=== PATIENT | female | born 1930 | race Caucasian/White ===

== ENCOUNTER → 2016-10-17 | Outpatient (CLI) | payer OTHER ==
[~2016-10-17] MED LIST: ASMACORT; CETITAB27 PO; DOXY100C2 PO; ERGO500037 PO; FLVHFA110 INH; FSMD/70 PO; LORA10TA57 PO; LRT5 PO; MONT1TAB5 PO; NASOCORT; PRED50TA PO; ZFRODT4 SL
== END | disposition home or self-care (01) ==
LOC: C.PATHSPEC 17:56
PROVIDERS: ATTEND Plastic Surgery
DX: L98.9 Disorder of the skin and subcutaneous tissue, unspecified (principal)

== ENCOUNTER → 2017-02-10 | Outpatient (CLI) | payer OTHER ==
[~2017-02-10] MED LIST changes: +LORA-749 PO; -LORA10TA57 PO
[2017-02-10 17:30] LABS: HEMATOCRIT 43.4 % (37-47); MEAN CELL VOLUME 96.2 fL (80-100); MEAN CORPUSCULAR HEMOGLOBIN 31.7 pg (25-34); MEAN CORPUSCULAR HGB CONC 32.9 g/dl (32-36); MEAN PLATELET VOLUME 9.9 fL (7.4-10.4); PLATELET COUNT 208 K/uL (130-400); RED BLOOD COUNT 4.51 M/uL (4.2-5.4); WHITE BLOOD COUNT 5.44 K/uL (4.8-10.8)
[2017-02-10 17:56] LABS: URINE APPEARANCE CLEAR (CLEAR); URINE BILIRUBIN NEG (NEG); URINE COLOR YELLOW; URINE NITRITE NEG (NEG); URINE PH 5.5 (4.5-7.5); URINE SPECIFIC GRAVITY 1.021 (1.000-1.030); UROBILINOGEN NEG (NEG)
[2017-02-10 17:58] LABS: URINE PROTIEN/CREAT RATIO 0.3 (0-0.2); URINE TOTAL PROTEIN 33.2 mg/dl (0-11.9)
[2017-02-10 17:59] LABS: MANUAL MICROSCOPIC REQUIRED? NO; REVIEW REQ? NO
[2017-02-10 18:05] LABS: ALB/GLOB RATIO 1.1 (0.9-2); ALT/SGPT 21 U/L (12-78); AST/SGOT 18 U/L (15-37); BLOOD UREA NITROGEN 30 mg/dl (7-18); BUN/CREATININE RATIO 35.2 (10-20); CALCIUM 9.4 mg/dl (8.5-10.1); CARBON DIOXIDE 32 mmol/L (21-32); CHLORIDE 105 mmol/L (98-107); CREATININE 0.84 mg/dl (0.60-1.20); GLUCOSE 82 mg/dl (70-99); POTASSIUM 4.3 mmol/L (3.5-5.1); SODIUM 141 mmol/L (136-145)
[2017-02-10 18:06] LABS: ALKALINE PHOSPHATASE 54 U/L (45-117)
== END | disposition home or self-care (01) ==
LOC: C.LAB1850 17:04
PROVIDERS: ATTEND Internal Medicine Nephrology
DX: N18.2 Chronic kidney disease, stage 2 (mild) (principal); E55.9 Vitamin D deficiency, unspecified; N25.81 Secondary hyperparathyroidism of renal origin

== ENCOUNTER → 2017-02-24 | Outpatient (CLI) | payer OTHER ==
--- NOTE | 2017-02-25 07:55 | MAMMOGRAPHY REPORT ---
BILATERAL DIGITAL SCREENING MAMMOGRAM WITH CAD: 02/24/2017 CLINICAL HISTORY: Routine screening. Patient has no complaints. TECHNIQUE: Bilateral CC, MLO and left XCCL views were obtained. Current study was also evaluated w ith a Computer Aided Detection (CAD) system. COMPARISON: Comparison is made to exams dated: 02/22/2016 mammogram, 06/24/2013 mammogram, 09/12/2010 mammogram - [facility], 07/12/2009, and 08/06/2007. BREAST COMPOSITION: The tissue of both breasts is heterogeneously dense, which may obscure small ma sses. FINDINGS: There is a 5 mm focal asymmetry in the 6:00 right breast, that could represent normal ove rlapping tissue. However, additional spot compression tomosynthesis views and possibly ultrasound a re recommended. There are stable grouped punctate microcalcifications in the upper outer middle one third of the lef t breast, similar in appearance dating back to at least 08/06/2007, therefore likely benign. No oth er suspicious mass, architectural distortion or cluster of microcalcifications is seen. IMPRESSION: ACR BI-RADS CATEGORY 0: INCOMPLETE EVALUATION: NEED ADDITIONAL IMAGING EVALUATION The 5 mm focal asymmetry in the 6:00 right breast needs additional evaluation. The patient will be called to schedule an appointment. Approximately 10% of breast cancers are not detected with mammography. A negative mammographic repor t should not delay biopsy if a clinically suggestive mass is present. Tracie Graves M.D. ay/:02/24/2017 20:57:32 Chief Design Branch: Megan MACEDO(Av)(Sudha)(BD), [facility] letter sent: Addl Imaging 0 BI-RADS Code: ACR BI-RADS Category 0: Incomplete Evaluation: Need Additional Imaging Evaluation
== END | disposition home or self-care (01) ==
LOC: C.MAMM 14:10
PROVIDERS: ATTEND Family Medicine
DX: Z12.31 Encounter for screening mammogram for malignant neoplasm of breast (principal); N64.89 Other specified disorders of breast

== ENCOUNTER 2017-03-03 22:01 | Emergency (ER) | payer OTHER ==
[~2017-03-03] VITALS: Ht 162.6 cm; Wt 53.6 kg
[~2017-03-03 22:01] MED LIST changes: -DOXY100C2 PO; -ERGO500037 PO; -FLVHFA110 INH; -FSMD/70 PO; -LORA-749 PO; -MONT1TAB5 PO; -PRED50TA PO
[2017-03-03 22:03] VITALS: TEMP 36.7; Ht 162.6 cm; Wt 53.6 kg
[2017-03-03] MEDS ORDERED: ALBUT/IPRATROP 3MG/0.5MG NEB 3 ML VIAL INH STA (22:34)
[2017-03-03] MEDS ORDERED: SODIUM CHLORIDE 0.9% 1000ML 1,000 ML IV STA (22:34)
[2017-03-03] MEDS ORDERED: ONDANSETRON INJ 2 MG/ML 2 ML VIAL IV STA (22:34)
[2017-03-03] MEDS ORDERED: RANITIDINE HCL 50 MG/100 ML D5W IV STA (22:34)
[2017-03-03] MEDS ORDERED: SODIUM CHLORIDE 0.9% 500ML 500 ML IV STA (22:34)
[2017-03-03] MEDS ORDERED: DEXAMETHASONE SOD INJ 10 MG/ML VIAL IV ONE (22:45)
[2017-03-03] MEDS ORDERED: FSMD/70 PO (22:50)
[2017-03-03] MEDS ORDERED: MONT1TAB5 PO (22:50)
[2017-03-03] MEDS ORDERED: ERGO500037 PO (22:52)
[2017-03-03] MEDS ORDERED: FLVHFA110 INH (22:53)
[2017-03-03] MEDS ORDERED: LORA-749 PO (22:54)
[2017-03-03 23:06] LABS: BASO % 0.4 %; BASO ABS # 0.03 K/uL (0-0.2); COMPLETE YES; EOS % 0.8 %; HEMATOCRIT 40.9 % (37-47); IG% 0.8 %; LYMPH % 10.7 %; LYMPH ABS # 0.83 K/uL (1.2-3.4); MEAN CORPUSCULAR HEMOGLOBIN 31.8 pg (25-34); MEAN CORPUSCULAR HGB CONC 34.2 g/dl (32-36); MEAN PLATELET VOLUME 9.1 fL (7.4-10.4); MONO % 13.5 %; NEUT % 73.8 %; PLATELET COUNT 219 K/uL (130-400); WHITE BLOOD COUNT 7.75 K/uL (4.8-10.8)
[2017-03-03 23:09] VITALS: O2SAT 94
[2017-03-03 23:32] LABS: BLOOD UREA NITROGEN 11 mg/dl (7-18); BUN/CREATININE RATIO 13.3 (10-20); CALCIUM 8.6 mg/dl (8.5-10.1); CARBON DIOXIDE 29 mmol/L (21-32); CHLORIDE 99 mmol/L (98-107); CREATININE 0.85 mg/dl (0.60-1.20); GLUCOSE 115 mg/dl (70-99); POTASSIUM 3.9 mmol/L (3.5-5.1); SODIUM 137 mmol/L (136-145)
[2017-03-04] MEDS ORDERED: DOXYCYCLINE HYCLATE 100 MG CAP PO ONE (00:15)
--- NOTE | 2017-03-04 00:17 | EMERGENCY ROOM VISIT NOTE ---
ED Visit Note First contact with patient: 22:14 Patient seen by me as well. I agree with the physician assistants workup with the patient. On examination the patient at 0015 the patient states she is much improved. Patient has a negative troponin will repeat to rule out acute coronary syndrome which do not suspect this time. I suspect this more a bronchitis type picture. The evaluation was discussed with the patient patient' s family at bedside Current/Historical Medications Scheduled Alendronate/Cholecalciferol (Fosamax+D 70MG/2800 Iu), 70 MG PO WK Ergocalciferol (Vitamin D 59179 Unit), 50,000 UNIT PO MONTHLY Montelukast Sodium (Montelukast Sodium), 10 MG PO DAILY Scheduled PRN Fluticasone Propionate (Flovent Hfa), 2 PUFFS INH BID PRN for SOB/Wheezing Loratadine & Pseudoephedrine (Claritin-D 24 Hour), 1 TAB PO DAILY PRN for ALLERGIC REACTION Allergies Coded Allergies: Penicillins (Unverified Allergy, Mild, 02/01/14) Vital Signs Date Time Temp Pulse Resp B/P Pulse Ox O2 Delivery O2 Flow Rate FiO2 03/03/17 23:09 94 Room Air 03/03/17 22:23 92 Room Air 03/03/17 22:03 36.7 101 21 130/85 93 Room Air Laboratory Results 03/03/17 22:55 Red Blood Count 4.40, Mean Corpuscular Volume 93.0, Mean Corpuscular Hemoglobin 31.8, Mean Corpuscular Hemoglobin Concent 34.2, Mean Platelet Volume 9.1, Neutrophils (%) (Auto) 73.8, Lymphocytes (%) (Auto) 10.7, Monocytes (%) (Auto) 13.5, Eosinophils (%) (Auto) 0.8, Basophils (%) (Auto) 0.4, Neutrophils # (Auto ) 5.72, Lymphocytes # (Auto) 0.83, Monocytes # (Auto) 1.05, Eosinophils # (Auto ) 0.06, Basophils # (Auto) 0.03 03/03/17 22:55 Test 03/03/17 22:55 03/03/17 23:03 White Blood Count 7.75 K/uL (4.8-10.8) Red Blood Count 4.40 M/uL (4.2-5.4) Hemoglobin 14.0 g/dL (12.0-16.0) Hematocrit 40.9 % (37-47) Mean Corpuscular Volume 93.0 fL (80-100) Mean Corpuscular Hemoglobin 31.8 pg (25-34) Mean Corpuscular Hemoglobin Concent 34.2 g/dl (32-36) Platelet Count 219 K/uL (130-400) Mean Platelet Volume 9.1 fL (7.4-10.4) Neutrophils (%) (Auto) 73.8 % Lymphocytes (%) (Auto) 10.7 % Monocytes (%) (Auto) 13.5 % Eosinophils (%) (Auto) 0.8 % Basophils (%) (Auto) 0.4 % Neutrophils # (Auto) 5.72 K/uL (1.4-6.5) Lymphocytes # (Auto) 0.83 K/uL (1.2-3.4) Monocytes # (Auto) 1.05 K/uL (0.11-0.59) Eosinophils # (Auto) 0.06 K/uL (0-0.5) Basophils # (Auto) 0.03 K/uL (0-0.2) RDW Standard Deviation 41.1 fL (36.4-46.3) RDW Coefficient of Variation 12.1 % (11.5-14.5) Immature Granulocyte % (Auto) 0.8 % Immature Granulocyte # (Auto) 0.06 K/uL (0.00-0.02) Anion Gap 9.0 mmol/L (3-11) Est Creatinine Clear Calc Drug Dose 40.9 ml/min Estimated GFR () 72.4 Estimated GFR (Non- 62.5 BUN/Creatinine Ratio 13.3 (10-20) Calcium Level 8.6 mg/dl (8.5-10.1) Troponin I < 0.015 ng/ml (0-0.045) Bedside Lactic Acid Venous 0.80 mmol/L (0.90-1.70) Medications Administered Medications (Trade) Dose Ordered Sig/Whit Route Start Time Stop Time Status Last Admin Dose Admin Dexamethasone Sodium Phosphate (Decadron Inj) 10 mg NOW ONCE IV 03/03/17 22:45 03/03/17 22:46 DC 03/03/17 23:01 10 MG Albuterol/ Ipratropium 3 ml 3 ml NOW STAT INH 03/03/17 22:34 03/03/17 22:36 DC 03/03/17 22:58 3 ML Sodium Chloride 500 ml @ 999 mls/hr Q31M STAT IV 03/03/17 22:34 03/03/17 23:04 DC 03/03/17 22:34 999 MLS/HR Sodium Chloride (Nss 1000ml) 1,000 ml @ 125 mls/hr Q8H STAT IV 03/03/17 22:34 03/04/17 06:33 03/03/17 23:02 125 MLS/HR Ondansetron HCl (Zofran Inj) 4 mg NOW STAT IV 03/03/17 22:34 03/03/17 22:37 DC 03/03/17 23:01 4 MG Ranitidine HCl (zANTac IV) 50 mg NOW STAT IV 03/03/17 22:34 03/03/17 22:37 DC 03/03/17 23:01 50 MG Doxycycline Hyclate (Vibramycin Cap) 100 mg ONE ONCE PO 03/04/17 00:15 03/04/17 00:16 03/04/17 00:14 100 MG Departure Information Referrals Kelby Avendnao M.D. (PCP) Patient Instructions [facility]
[2017-03-04] MEDS ORDERED: PRED50TA PO (01:11)
[2017-03-04] MEDS ORDERED: DOXY100C2 PO (01:11)
[2017-03-04 01:23] VITALS: BP 132/82; PULSE 82; O2SAT 95
--- NOTE | 2017-03-04 04:21 | EMERGENCY ROOM VISIT NOTE ---
History First contact with patient: 22:14 Chief Complaint: THROAT PAIN/INJURY Stated Complaint: SORE THROAT,NAUSEA,FEVER,COATED TONGUE,PEELING LIP History of Present Illness The patient is a 87 year old female who presents to the Emergency Room with complaints of cough, congestion, throat discomfort, subjective fever and chills for the past week. Patient went to urgent care couple days ago and did a strep test was negative. Patient also complains of nausea. Patient denies chest pain , dyspnea, abdominal pain, leg pain or swelling, headache, neck stiffness. Patient complains of decreased appetite and fluid intake. Patient tried her inhaler with some improvement of symptoms. Review of Systems See HPI for pertinent positives & negatives. A total of 10 systems reviewed and were otherwise negative. Past Medical/Surgical History Asthma, osteoporosis, hysterectomy, tonsillectomy, hernia repair Social History Smoking Status: Never Smoker Smokeless Tobacco Use: No Alcohol Use: occasionally Drug Use: none Marital Status: Housing Status: lives with family Occupation Status: retired Current/Historical Medications Scheduled Alendronate/Cholecalciferol (Fosamax+D 70MG/2800 Iu), 70 MG PO WK Doxycycline Hyclate (Vibramycin), 100 MG PO BID Ergocalciferol (Vitamin D 57221 Unit), 50,000 UNIT PO MONTHLY Montelukast Sodium (Montelukast Sodium), 10 MG PO DAILY Prednisone (Prednisone), 50 MG PO DAILY Scheduled PRN Fluticasone Propionate (Flovent Hfa), 2 PUFFS INH BID PRN for SOB/Wheezing Loratadine & Pseudoephedrine (Claritin-D 24 Hour), 1 TAB PO DAILY PRN for ALLERGIC REACTION Allergies Coded Allergies: Penicillins (Unverified Allergy, Mild, 02/01/14) Physical Exam Vital Signs Date Time Temp Pulse Resp B/P Pulse Ox O2 Delivery O2 Flow Rate FiO2 03/04/17 01:23 82 18 132/82 95 Room Air 03/04/17 00:00 87 18 125/84 94 Room Air 03/03/17 23:09 94 Room Air 03/03/17 22:23 92 Room Air 03/03/17 22:03 36.7 101 21 130/85 93 Room Air Pain Rating (0-10): 0 Physical Exam VITALS: Vitals are noted on the nurse's note and reviewed by myself. Vital signs stable. GENERAL: Pleasant female, in no acute distress, nondiaphoretic, well-developed well-nourished. SKIN: The skin was without rashes, erythema, edema, or bruising. There is no tenting of the skin. Capillary reflex less than 2 seconds. HEAD: Normocephalic atraumatic. EARS: External auditory canals clear, tympanic membranes pearly sanchez without erythema or effusion bilaterally. EYES: Pupils equal round and reactive to light and accommodation. Conjunctivae without injection, sclerae without icterus. Extraocular movements intact. NOSE: Patent, turbinates without inflammation or discharge. No sinus tenderness. MOUTH: Mucous membranes mildly dry. Pharynx without erythema or exudate. Uvula midline. Airway patent. Tongue does not deviate. NECK: Supple without nuchal rigidity. No lymphadenopathy. No thyromegaly. Cervical spine is nontender. No JVD. HEART: Regular rate and rhythm LUNGS: Mild diffuse end expiratory wheezes, without rales or rhonchi. No dullness to percussion. No retractions or accessory muscle use. ABDOMEN: Positive bowel sounds x 4. Normal tympanic percussion. Soft, nontender, without masses or organomegaly. Rodriguez sign negative. No guarding or rebound tenderness. MUSCULOSKELETAL: No muscle atrophy, erythema, or edema noted. NEURO: Patient was alert and oriented to person place and time. Normal sensation to light and sharp touch. No focal neurological deficits. Medical Decision & Procedures Laboratory Results 03/03/17 22:55 Red Blood Count 4.40, Mean Corpuscular Volume 93.0, Mean Corpuscular Hemoglobin 31.8, Mean Corpuscular Hemoglobin Concent 34.2, Mean Platelet Volume 9.1, Neutrophils (%) (Auto) 73.8, Lymphocytes (%) (Auto) 10.7, Monocytes (%) (Auto) 13.5, Eosinophils (%) (Auto) 0.8, Basophils (%) (Auto) 0.4, Neutrophils # (Auto ) 5.72, Lymphocytes # (Auto) 0.83, Monocytes # (Auto) 1.05, Eosinophils # (Auto ) 0.06, Basophils # (Auto) 0.03 03/03/17 22:55 Test 03/03/17 22:55 03/03/17 23:03 03/04/17 00:54 White Blood Count 7.75 K/uL (4.8-10.8) Red Blood Count 4.40 M/uL (4.2-5.4) Hemoglobin 14.0 g/dL (12.0-16.0) Hematocrit 40.9 % (37-47) Mean Corpuscular Volume 93.0 fL (80-100) Mean Corpuscular Hemoglobin 31.8 pg (25-34) Mean Corpuscular Hemoglobin Concent 34.2 g/dl (32-36) Platelet Count 219 K/uL (130-400) Mean Platelet Volume 9.1 fL (7.4-10.4) Neutrophils (%) (Auto) 73.8 % Lymphocytes (%) (Auto) 10.7 % Monocytes (%) (Auto) 13.5 % Eosinophils (%) (Auto) 0.8 % Basophils (%) (Auto) 0.4 % Neutrophils # (Auto) 5.72 K/uL (1.4-6.5) Lymphocytes # (Auto) 0.83 K/uL (1.2-3.4) Monocytes # (Auto) 1.05 K/uL (0.11-0.59) Eosinophils # (Auto) 0.06 K/uL (0-0.5) Basophils # (Auto) 0.03 K/uL (0-0.2) RDW Standard Deviation 41.1 fL (36.4-46.3) RDW Coefficient of Variation 12.1 % (11.5-14.5) Immature Granulocyte % (Auto) 0.8 % Immature Granulocyte # (Auto) 0.06 K/uL (0.00-0.02) Anion Gap 9.0 mmol/L (3-11) Est Creatinine Clear Calc Drug Dose 40.9 ml/min Estimated GFR () 72.4 Estimated GFR (Non- 62.5 BUN/Creatinine Ratio 13.3 (10-20) Calcium Level 8.6 mg/dl (8.5-10.1) Troponin I < 0.015 ng/ml (0-0.045) Bedside Lactic Acid Venous 0.80 mmol/L (0.90-1.70) Bedside Troponin I 0.000 ng/ml (0-0.045) Medications Administered Medications (Trade) Dose Ordered Sig/Whit Route Start Time Stop Time Status Last Admin Dose Admin Dexamethasone Sodium Phosphate (Decadron Inj) 10 mg NOW ONCE IV 03/03/17 22:45 03/03/17 22:46 DC 03/03/17 23:01 10 MG Albuterol/ Ipratropium 3 ml 3 ml NOW STAT INH 03/03/17 22:34 03/03/17 22:36 DC 03/03/17 22:58 3 ML Sodium Chloride 500 ml @ 999 mls/hr Q31M STAT IV 03/03/17 22:34 03/03/17 23:04 DC 03/03/17 22:34 999 MLS/HR Sodium Chloride (Nss 1000ml) 1,000 ml @ 125 mls/hr Q8H STAT IV 03/03/17 22:34 03/04/17 02:15 DC 03/03/17 23:02 125 MLS/HR Ondansetron HCl (Zofran Inj) 4 mg NOW STAT IV 03/03/17 22:34 03/03/17 22:37 DC 03/03/17 23:01 4 MG Ranitidine HCl (zANTac IV) 50 mg NOW STAT IV 03/03/17 22:34 03/03/17 22:37 DC 03/03/17 23:01 50 MG Doxycycline Hyclate (Vibramycin Cap) 100 mg ONE ONCE PO 03/04/17 00:15 03/04/17 00:16 DC 03/04/17 00:14 100 MG ED Course Prior records/ancillary studies reviewed. Triage Nursing notes reviewed. Additional history obtained from family The patient's history was concerning for cold symptoms Differential diagnosis: Etiologies such as viral syndrome, otitis, pharyngitis, pneumonia, influenza, meningitis, urinary tract infection, sepsis, bacteremia, as well as others were entertained. Physical examination: Patient is alert, interactive and well-appearing ER treatment provided: No evidence, steroids, IV fluids On reassessment the patient felt better. Diagnostics interpreted by me: ECG: Normal sinus, normal intervals, right bundle branch block, left anterior fascicular block, Rate of 79. Impression right bundle branch block with a left anterior fascicular block interpreted by myself. Repeat EKG is unchanged. The labs revealed 2 troponins that are 2 hours apart that are negative. No leukocytosis Negative lactic acid Imaging studies: Chest x-ray with no acute consolidation, pneumothorax or free air per my interpretation This appears to be consistent with bronchitis. Patient had an abnormal EKG so repeat enzymes were ordered. She did have nausea. This could be an anginal equivalent. This is negative. Patient felt much better after being medicated as above. She was started on antibiotics for bronchitis for possible Atypical pathogens. Patient is an asthmatic. She has been sick for over a week. Negative lactic acid. No white count. She is advised to follow-up family care in a few days or here in the ER sooner for high fevers, lethargy, chest pain, worsening signs or symptoms or as needed.. By the evaluation outlined above emergent etiologies such as otitis, pharyngitis, pneumonia, meningitis, urinary tract infection, sepsis, bacteremia, as well as others were deemed relatively unlikely. The pt informed about the findings as listed above. All questions were answered and pleased with the treatment. Return instructions were outlined and the patient was discharged in stable condition. Outpatient prescription management: Doxycycline, prednisone. Patient has inhaler at home she has asthma Referral: The patient was referred back to their primary care physician for follow-up in 2 to 3 days for a recheck of the current condition. Case reviewed with my attending. Medical Decision As above Impression Primary Impression: Bronchitis Additional Impressions: Nausea Mild asthma with acute exacerbation Departure Information Dispostion Home / Self-Care Condition GOOD Prescriptions Prednisone (Prednisone) 50 Mg Tab 50 MG PO DAILY for 4 Days, #4 TAB Prov: Lexi Pina .TEGAN 03/04/17 Doxycycline Hyclate (VIBRAMYCIN) 100 Mg Cap 100 MG PO BID for 7 Days, #14 CAP Prov: Lexi Pina .TEGAN 03/04/17 Forms WORK / SCHOOL INSTRUCTIONS, HOME CARE DOCUMENTATION FORM, IMPORTANT VISIT INFORMATION Patient Instructions Bronchitis Acute, My [facility] Additional Instructions Prednisone 50 m tablet daily for the next 4 days. Takes in the morning. Doxycycline 100mg: Take one pill twice daily for seven days for your infection. Take with food, but avoid dairy. Avoid prolonged sun exposure since this medication makes you temporarily more susceptible to sunburns. All antibiotics can cause diarrhea. If this occurs and you feel worse or it does not resolve in 1-2 days follow up with your doctor or return to the Emergency Department as this could be signs of serious underlying problems. Any medication can cause an allergic reaction, stop the pills immediately and return to the ER for rash, hives, breathing difficulties, or swelling. Albuterol Inhaler: Take 2 puffs four times daily for seven days, then as needed. Acetaminophen(Tylenol) may be used for fever or pain. Use 1000mg every six hours as needed. Avoid using more than 3000mg in a 24 hour period. AND/OR Ibuprofen(Motrin, Advil) may be used for fever or pain. Use 600mg every six hours as needed. Take with food. Avoid using more than 2400mg in a 24 hour period. Do not use 2400mg per day for more than three consecutive days without physician direction. Prolonged inappropriate use can lead to stomach upset or ulcers. Controlling your fever with Tylenol and Ibuprofen as above will make you feel better. Rest and drink plenty of fluids. Avoid strenuous activity until your symptoms resolve and your breathing returns to normal. Continue current medications. Return to the ER for chest pain, difficulty breathing, persistent fevers, vomiting, worsening of your condition, or as needed. Follow-up with family care in 2-3 days. Problem Qualifiers
--- NOTE | 2017-03-04 07:18 | DIAGNOSTIC IMAGING REPORT ---
CHEST 2 VIEWS ROUTINE HISTORY: cough COMPARISON: Chest 07/03/2007. FINDINGS: The heart is normal in size. Mild emphysema. No pneumothorax. Linear densities within the right lung base. Blunting of the posterior costophrenic sulci. Patchy airspace opacities within the right upper lobe. IMPRESSION: 1. Patchy airspace opacities within the right upper lobe. This likely represents a pneumonia. Recommend one to 2 month chest x-ray follow-up to ensure resolution. 2. Emphysema. 3. Blunting of the posterior costophrenic sulci. This could be due to trace pleural effusions or the hyperexpanded lungs. Electronically signed by: Dayton Hall M.D. 03/04/2017 7:17 AM Dictated Date/Time: 03/04/2017 7:15 AM
== END 2017-03-04 01:28 | disposition home or self-care (01) ==
LOC: C.EDB 22:02 → C.EDC 03-04 01:28
DX: J45.901 Unspecified asthma with (acute) exacerbation (principal); J40 Bronchitis, not specified as acute or chronic; R11.0 Nausea; M81.0 Age-related osteoporosis without current pathological fracture; Z79.899 Other long term (current) drug therapy; Z88.0 Allergy status to penicillin; Z90.710 Acquired absence of both cervix and uterus; Z98.890 Other specified postprocedural states

== ENCOUNTER → 2017-03-05 | Outpatient (CLI) | payer OTHER ==
[~2017-03-05] MED LIST changes: -ASMACORT; -CETITAB27 PO; +DOXY100C2 PO; +ERGO500037 PO; +FLVHFA110 INH; +FSMD/70 PO; +LORA-749 PO; -LRT5 PO; +MONT1TAB5 PO; -NASOCORT; +PRED50TA PO; -ZFRODT4 SL
--- NOTE | 2017-03-05 14:11 | MAMMOGRAPHY REPORT ---
UNILATERAL RIGHT DIGITAL DIAGNOSTIC MAMMOGRAM TOMOSYNTHESIS AND TARGETED RIGHT ULTRASOUND: 03/05/2017 CLINICAL HISTORY: Callback from screening mammogram for right breast asymmetry. The patient reports that her daughter was diagnosed with breast cancer at age 49. TECHNIQUE: Breast tomosynthesis in addition to standard 2D mammography was performed. Spot floyd bindu right CC and MLO 2-D and tomosynthesis images were obtained. COMPARISON: Comparison is made to exams dated: 02/24/2017 mammogram, 02/22/2016 mammogram, 06/24/2013 mammogram, 09/12/2010 mammogram - [facility], 07/12/2009, and 08/06/2007. BREAST COMPOSITION: The tissue of the right breast is heterogeneously dense, which may obscure smal l masses. FINDINGS: The previously described nodular asymmetry within the right 6:00 breast effaces to a base line appearance on the additional spot compression views, and has the appearance of normal fibroglan dular tissue on the additional tomosynthesis images. No suspicious mass or architectural distortion is noted in this region on the additional tomosynthesis images. Targeted ultrasound was performed of the right 6:00 breast in the region of the mammographic asymmet ry. No suspicious masses or other suspicious sonographic abnormalities are evident. IMPRESSION: ACR BI-RADS CATEGORY 2: BENIGN, TARGETED ULTRASOUND ACR BI-RADS CATEGORY 2: BENIGN The right breast focal asymmetry effaces on the additional views, without corresponding sonographic abnormality evident. The asymmetry is benign and compatible with normal fibroglandular tissue. The re is no mammographic or targeted sonographic evidence of malignancy. A 1 year screening mammogram i s recommended. The patient has been verbally notified of the results. Approximately 10% of breast cancers are not detected with mammography. A negative mammographic repor t should not delay biopsy if a clinically suggestive mass is present. Jennifer Hope M.D. ah/:03/05/2017 11:10:13 [employer] Driver: Maureen MACEDO(Av)(M), [facility] letter sent: Normal 1/2 BI-RADS Code: ACR BI-RADS Category 2: Benign Ultrasound BI-RADS: ACR BI-RADS Category 2: Benign
== END | disposition home or self-care (01) ==
LOC: C.MAMM 10:37
PROVIDERS: ATTEND Family Medicine
DX: R92.8 Other abnormal and inconclusive findings on diagnostic imaging of breast (principal)

== ENCOUNTER → 2017-04-14 | Outpatient (CLI) | payer OTHER ==
[~2017-04-14] MED LIST changes: -LORA-749 PO; +LORA10TA57 PO; -PRED50TA PO
--- NOTE | 2017-04-14 15:00 | DIAGNOSTIC IMAGING REPORT ---
CHEST 2 VIEWS ROUTINE HISTORY:85 [id number] COMPARISON: 03/03/2017. TECHNIQUE: Frontal and lateral views of the chest. FINDINGS: Cardiac silhouette is within normal limits. There is atherosclerosis of the aorta. Mild biapical pleural parenchymal scarring is seen. No pneumothorax or large pleural effusion. There is resolution of the previously described alveolar opacities of the right midlung. No new focal airspace consolidation or overt pulmonary edema. Lungs are mildly hyperinflated. Persistent blunting of the posterior costophrenic angles is thought to be secondary to hyperinflation and scarring. Degenerative changes are seen within the lumbar spine. There is convex right curvature of the lumbar spine. IMPRESSION: 1. Resolution of the previously described alveolar opacities of the right midlung. 2. Background emphysema. The above report was generated using voice recognition software. It may contain grammatical, syntax or spelling errors. Electronically signed by: Gasper Powell 04/14/2017 2:58 PM Dictated Date/Time: 04/14/2017 2:57 PM
== END | disposition home or self-care (01) ==
LOC: C.RAD 14:20
PROVIDERS: ATTEND Physician Assistant
DX: R93.8 Abnormal findings on diagnostic imaging of other specified body structures (principal); J43.9 Emphysema, unspecified

== ENCOUNTER → 2018-01-26 | Outpatient (CLI) | payer OTHER ==
[~2018-01-26] MED LIST changes: +LORA-749 PO; -LORA10TA57 PO
== END | disposition home or self-care (01) ==
LOC: C.MAMM 11:07
PROVIDERS: ATTEND Family Medicine
DX: M81.0 Age-related osteoporosis without current pathological fracture (principal); M85.852 Other specified disorders of bone density and structure, left thigh

== ENCOUNTER → 2018-02-16 | Outpatient (CLI) | payer OTHER ==
[2018-02-16 16:44] LABS: HEMATOCRIT 41.2 % (37-47); HEMOGLOBIN 13.5 g/dL (12.0-16.0); MEAN CELL VOLUME 96.3 fL (80-100); MEAN CORPUSCULAR HEMOGLOBIN 31.5 pg (25-34); MEAN CORPUSCULAR HGB CONC 32.8 g/dl (32-36); PLATELET COUNT 178 K/uL (130-400); RED CELL DISTRIBUTION WIDTH CV 13.2 % (11.5-14.5); RED CELL DISTRIBUTION WIDTH SD 46.2 fL (36.4-46.3); WHITE BLOOD COUNT 4.81 K/uL (4.8-10.8)
[2018-02-16 17:12] LABS: ALBUMIN 3.3 gm/dl (3.4-5.0); BLOOD UREA NITROGEN 22 mg/dl (7-18); CALCIUM 8.2 mg/dl (8.5-10.1); CARBON DIOXIDE 29 mmol/L (21-32); GLUCOSE 112 mg/dl (70-99); PHOSPHORUS 3.6 mg/dl (2.5-4.9); POTASSIUM 4.1 mmol/L (3.5-5.1); SODIUM 140 mmol/L (136-145)
== END | disposition home or self-care (01) ==
LOC: C.LAB1850 15:00
PROVIDERS: ATTEND Internal Medicine Nephrology
DX: N18.2 Chronic kidney disease, stage 2 (mild) (principal); E55.9 Vitamin D deficiency, unspecified; N25.81 Secondary hyperparathyroidism of renal origin; I45.4 Nonspecific intraventricular block

== ENCOUNTER → 2018-02-17 | Outpatient (CLI) | payer OTHER ==
--- NOTE | 2018-02-17 13:56 | DIAGNOSTIC IMAGING REPORT ---
LEFT WRIST 3 VIEWS HISTORY: LEFT WRIST PAIN COMPARISON: None. FINDINGS: There is no fracture or dislocation. Soft tissues are unremarkable. No radiopaque foreign bodies. The bones are osteopenic. Mild cartilage space narrowing at the radiocarpal joint consistent with degenerative change. IMPRESSION: No fractures. Electronically signed by: Dayton Hall M.D. 02/17/2018 1:55 PM Dictated Date/Time: 02/17/2018 1:52 PM
== END | disposition home or self-care (01) ==
LOC: C.RDSM 13:30
PROVIDERS: ATTEND Internal Medicine
DX: M25.532 Pain in left wrist (principal)

== ENCOUNTER → 2018-05-14 | Outpatient (CLI) | payer OTHER ==
[2018-05-14 17:33] LABS: BASO % 0.3 %; BASO ABS # 0.02 K/uL (0-0.2); EOS ABS # 0.12 K/uL (0-0.5); HEMATOCRIT 42.5 % (37-47); HEMOGLOBIN 13.9 g/dL (12.0-16.0); IG# 0.01 K/uL (0.00-0.02); LYMPH % 20.9 %; LYMPH ABS # 1.28 K/uL (1.2-3.4); MEAN CELL VOLUME 96.2 fL (80-100); MEAN CORPUSCULAR HEMOGLOBIN 31.4 pg (25-34); MEAN CORPUSCULAR HGB CONC 32.7 g/dl (32-36); MEAN PLATELET VOLUME 10.1 fL (7.4-10.4); MONO % 9.3 %; MONO ABS # 0.57 K/uL (0.11-0.59); NEUT % 67.3 %; NEUT ABS # 4.12 K/uL (1.4-6.5); PLATELET COUNT 190 K/uL (130-400); RED CELL DISTRIBUTION WIDTH SD 45.1 fL (36.4-46.3); WHITE BLOOD COUNT 6.12 K/uL (4.8-10.8)
[2018-05-14 17:56] LABS: BLOOD UREA NITROGEN 20 mg/dl (7-18); CALCIUM 9.2 mg/dl (8.5-10.1); CARBON DIOXIDE 30 mmol/L (21-32); CREATININE 0.83 mg/dl (0.60-1.20); GLUCOSE 103 mg/dl (70-99); POTASSIUM 4.1 mmol/L (3.5-5.1); SODIUM 141 mmol/L (136-145)
== END | disposition home or self-care (01) ==
LOC: C.LAB1850 16:45
PROVIDERS: ATTEND Physician Assistant
DX: Z01.818 Encounter for other preprocedural examination (principal)